=== PATIENT | male | born 1990 | race Hispanic/Latino ===

== ENCOUNTER 2019-03-17 19:50 | Emergency (ER) | payer BC, SELFPAY ==
[2019-03-17] MEDS ORDERED: Adacel (T-DAP) 0.5 ML SYRINGE ONE (20:12)
[2019-03-17] MEDS ORDERED: Lidocaine 1% PF 5 ML VIAL ONE (20:12)
[2019-03-17] MEDS ORDERED: Triple Antibiotic Oint 1 GM Packet ONE (20:43)
== END 2019-03-17 20:50 | disposition home or self-care (01) ==
LOC: ERS 19:50
DX: S61.213A Laceration without foreign body of left middle finger without damage to nail, initial encounter (principal); W26.9XXA Contact with unspecified sharp object(s), initial encounter
CPT/HCPCS: 12001; 90471; 90715; J2001

== ENCOUNTER 2019-03-25 13:30 | Emergency (ER) | payer SELFPAY | END 2019-03-25 13:50 | disposition home or self-care (01) | LOC: ERS 13:30 | DX: S61.213D Laceration without foreign body of left middle finger without damage to nail, subsequent encounter (principal); X58.XXXD Exposure to other specified factors, subsequent encounter ==